=== PATIENT | male | born 1955 | race Caucasian/White ===

== ENCOUNTER 2017-09-22 12:59 | Outpatient (CLI) | payer OTHER | END 2017-09-22 13:00 | disposition home or self-care (01) | LOC: ULT 12:59 | PROVIDERS: ATTEND Psychiatry & Neurology Neurology | DX: Z02.71 Encounter for disability determination (principal); I73.9 Peripheral vascular disease, unspecified; M79.662 Pain in left lower leg; M79.661 Pain in right lower leg | CPT/HCPCS: 93922 ==